=== PATIENT | male | born 1975 | race Caucasian/White ===

== ENCOUNTER → 2019-05-13 | Outpatient (CLI) | payer OTHER ==
[~2019-05-13] MED LIST: ANTIHISTAMINE; BUPR300T3 PO; CITA10TA8 PO; DIVA-53 PO; FEXO1TAB27 PO; FLUT9.9S NS; MONT10TA49 PO; TRAZ-118 PO
--- NOTE | 2019-05-13 23:59 | PAIN ---
DATE OF SERVICE: 05/13/2019 INITIAL CONSULTATION FOR PAIN CLINIC CHIEF COMPLAINT: Upper, mid and low back pain. HISTORY OF PRESENT ILLNESS: The patient is a 43-year-old male who presents with history of pain for about 5 years, noticeably after multiple wear and tear activities and extreme lifting, carrying activities as active /army. The patient reports over the past 5 years, the pain is beginning to worsen at the base of neck and shoulders, upper back, mid back, especially on the right side compared to the left, in the mid and upper back and into the neck and shoulders. The patient reports also pain in the low back without specific radiation in the upper extremities or the lower extremity significantly, occasionally into the right shoulder more than the left, but not persistently. The patient reports no loss of motor function. No other deficits. The patient describes the pain as constant, sharp, stabbing at times with numbness and tingling, also some paresthesia in the hands and feet, but separate from the pain in the back and neck. The patient reports it is intermittent in intensity, is worse with walking, standing, changing positions, generally awakens him from sleep at least once or twice at night, does not affect her bowel or bladder control or his ability to walk significantly. The patient is remaining functional and is still doing some consistent exercises and physical therapy, which is helpful as well as some stretching and strengthening on his own. The patient has taken prednisone, which did decrease the pain to a moderate extent. This was in January of this year, but was short lived. The patient rates his disability rating from 0-10, 10 being at worst, is a 7 with family home responsibilities, recreation and occupational activities, 4 with social activity, 3 with sexual behavior, self-care and life support activities. The patient did have an MRI scan of the thoracic spine, which shows very mild posterior ridging and spurring from T3-T4 through T9-T10. No concerning marrow edema abnormalities noted, otherwise normal exam. PAST MEDICAL HISTORY: Significant for hearing loss, arthritis, neuropathy in the hands and feet. History of depression. Vocal cord dysfunction. PREVIOUS SURGERIES: Include ear tubes and wisdom teeth extraction. CURRENT MEDICATIONS: Include Wellbutrin, Celexa, Kenisha, Flonase inhaler, montelukast, divalproex, and trazodone. ALLERGIES: THE PATIENT IS ALLERGIC TO FENTANYL AND CODEINE. FAMILY HISTORY: Significant for no major medical problems or conditions that he lists. SOCIAL HISTORY: The patient does not drink alcohol, does not smoke, does not use any illegal, illicit or recreational drugs. He is , lives with his spouse, has one child, living at home, and lives locally in [place], [place]. The patient reports he is partially retired, works at the [employer] part-time. REVIEW OF SYSTEMS: The patient's review of systems is positive for those items mentioned in history of present illness. All systems reviewed and otherwise negative. It is complete, full and well documented on the patient's chart. PHYSICAL EXAMINATION: VITAL SIGNS: The patient's blood pressure 121/85, pulse 68, respirations 16, temperature 97.7 degrees Fahrenheit. Height is 72 inches, weight is 243 pounds. GENERAL: The patient is awake, alert, oriented, appropriate, very pleasant demeanor. HEENT: Shows normocephalic, atraumatic. Extraocular movements are intact and symmetrical. Oral cavity: Mucous membranes moist and pink. Dentition is intact. The patient has full roe and moustache. NECK: Shows anterior throat supple without palpable lymphadenopathy noted. Swallow reflex symmetrical. CHEST: Shows normal on inspection. Breath sounds are clear to auscultation bilaterally. HEART: Shows S1, S2 clear. No murmurs auscultated. ABDOMEN: Soft, nontender, nondistended. No palpable organomegaly is noted. No rebound or guarding demonstrated. BACK: Shows spine grossly in the midline. Normal appearing cervical lordotic curvature, thoracic kyphotic curvature and lumbar lordotic curvature. No previous surgical scar is noted. With palpation, there is some moderate tenderness in inferior cervical paraspinous musculature and especially in the right trapezius in the superior medial aspect as well as into the right rhomboid and right thoracic paraspinous musculature, very firm rope-like musculature consistent with trigger point areas of muscle in this region without significant radiation. Left side shows some very mild tenderness in the rhomboid and thoracic paraspinous musculature, but very firm rope-like musculature, again consistent with trigger point areas of musculature, but not as much in the trapezius on the left side. Thoracic paraspinous musculature inferiorly shows firm and symmetrical, but without specific trigger points. This is true into the lumbar distribution as well. The paraspinous muscles are symmetrical with some mild tenderness diffusely superomedially and inferiorly bilaterally without radiation. No tenderness over the sacrum or sacroiliac regions, posterior superior iliac spine. The patient has good rotational motion of lumbar spine, both laterally as well as extension and flexion without significant difficulty or pain reported bilaterally. Upper extremities show deep tendon reflexes 2+ and the biceps and triceps tendons are equal. Motor exam is strong with customer servicer strength rated at 5/5 as is bicep and tricep flexion. Shoulder shrug is strong and intact without loss of strength on resistance as is abduction of shoulder to 90 degrees without loss of strength on resistance as well and without pain reproduced. EXTREMITIES: Lower extremities show deep tendon reflexes 2+ in the patellar, 1+ tendo-calcaneus tendons. Motor exam is strong with 5/5 dorsiflexion, extension, quadriceps and hamstring flexion. Peripheral pulses are 1+ posterior tibia. No peripheral edema is noted in the upper and lower extremities as well as the upper extremities. The patient's skin shows warm and dry, good turgor. No edema. No sores, rashes or bruising throughout. IMPRESSION: 1. This is a 43-year-old male with about 5-year history of pain, increasing in the upper back, neck as well as some in the low back consistent with myofascial pain etiology. 2. Arthritis history. 3. Vocal cord dysfunction. 4. Hearing loss. PLAN: Options were discussed with the patient including conservative medical managements, physical therapies and interventional techniques. He would like to pursue interventional techniques as he has done physical therapies and still doing some therapy exercises. We discussed trigger point injections of the aforementioned and identified muscular groups in the trapezius as well as the thoracic paraspinous musculature and rhomboid distribution. The patient will wait for preauthorization with his insurance provider. I have him return to the clinic for trigger point injections at that time. ANDERSON JAVIER MD DR: PANDA/ginger JOB#: [id number] / [id number]
== END ==
LOC: PNCL 08:13
PROVIDERS: ATTEND Anesthesiology
DX: M54.6 Pain in thoracic spine (principal); M54.2 Cervicalgia; M54.5 Low back pain; M19.90 Unspecified osteoarthritis, unspecified site; J38.3 Other diseases of vocal cords; H91.90 Unspecified hearing loss, unspecified ear; Z88.4 Allergy status to anesthetic agent; Z88.5 Allergy status to narcotic agent; Z79.899 Other long term (current) drug therapy
CPT/HCPCS: G0463

== ENCOUNTER → 2019-06-16 | Outpatient (CLI) | payer OTHER ==
[~2019-06-16] MED LIST changes: +BUPIVACAINE MPF 0.25% 10 ML VIAL. ONE; +methylPREDNISolone ACETATE 40 MG/ML VIAL. ONE
--- NOTE | 2019-06-16 11:38 | PAIN ---
DATE OF SERVICE: 06/16/2019 PROGRESS NOTE FOR PAIN CLINIC DIAGNOSIS: Myofascial pain with low back pain. HISTORY OF PRESENT ILLNESS: The patient is a 43-year-old male who returns for followup status post initial evaluation and preauthorization for trigger point injections. The patient has obtained this and would like to proceed today. He reports still significant pain in upper neck, upper back, right greater than left shoulders and mid back as well, more on the right than the left. The patient reports it is a 1 on a scale of 10 at its worst, average and least and is a 1 on a scale of 10 today. The patient reports he has been doing physical therapy, which has been helpful by about 10% so far and is still doing stretching and strengthening exercises and have been working with deep tissue massage with his neck and shoulders, especially on the right side and upper back. The patient reports that he still has pain that is sharp and constant; however, it generally does not awaken him from sleep at night. The patient reports no new motor or sensory deficits, no new bowel or bladder incontinence or other complaints. PHYSICAL EXAMINATION: VITAL SIGNS: The patient's blood pressure 122/83, pulse 73, respirations 18, temperature 98.0 degrees Fahrenheit, height is 72 inches, weight is 256 pounds. GENERAL: The patient is awake, alert, oriented, appropriate, very pleasant demeanor. HEENT: Shows normocephalic, atraumatic. Extraocular movements are intact and symmetrical. Oral cavity: Mucous membranes moist and pink. Dentition is intact. NECK: Shows anterior throat supple. CHEST: Shows normal on inspection. Breath sounds are clear bilaterally. HEART: Shows S1, S2 clear. ABDOMEN: Obese, soft, nontender. BACK: Shows spine grossly in the midline. With palpation shows some moderate tenderness diffusely in the upper and middle distribution. Cervical paraspinous muscles with very firm rope-like musculature, worse on the right than the left. With palpation, very firm rope-like musculature consistent with trigger point areas of musculature. This is true into the superior medial and lateral trapezius on the right as well as the rhomboid distribution on the right and the left, but more significant tenderness on the right, but without specific radiation. The patient shows very firm rope-like musculature consistent with trigger point areas of muscle bilaterally. This is true into the thoracic paraspinous musculature, again worse on the right than the left, but present bilaterally with appearance of asymmetry, but with palpation much more firm and tender on the right side than the left. Lumbar paraspinous muscle shows symmetrical with only firm musculature, but without specific rope-like muscle and without radiation. EXTREMITIES: Upper extremities show deep tendon reflex is 2+ in the biceps, triceps tendons. Motor exam is strong with 5/5 artificial limb maker strength, bicep and tricep flexion. Peripheral pulses are 2+ radial. No peripheral edema is noted. Options were discussed with the patient. The patient's old chart was reviewed as his current medication regimen updated. Current review of systems updated today as well. We will proceed with trigger point injections of the identified musculature. Risks were again discussed including, but not limited to bleeding, infection, possibility of intravascular injection and sequelae, spread of local anesthetic and numbness, pneumothorax, side effects of steroid medication and poor results regarding pain control. The patient understands and wished to proceed. The patient will return to clinic in approximately 2 weeks for followup. He was counseled as to return appointment, activity level and side effects to be aware of. The patient will continue with physical therapy as well stretching and strengthening exercises on his home, heat applications as well. DIAGNOSIS: Myofascial pain. PROCEDURE: Trigger point injections, bilateral cervical paraspinous musculature, bilateral trapezius musculature, bilateral thoracic paraspinous musculature under sterile prep and drape using local anesthetic. MEDICATION INJECTED: A total of 40 mg Depo-Medrol plus total of 12 mL of 0.25% bupivacaine after negative aspiration at each injection site. CONDITION AT DISCHARGE: Stable. The patient tolerated the procedure well, had no complications. ANDERSON JAVIER MD DR: PANDA/ginger JOB#: [id number] / [id number]
== END ==
LOC: PNCL 08:44
PROVIDERS: ATTEND Anesthesiology
DX: M79.18 Myalgia, other site (principal)
CPT/HCPCS: 20553; J1030; J3490